=== PATIENT | male | born 1995 | race American Indian/Alaskan Native ===

== ENCOUNTER 2022-03-21 22:30 | Emergency (ER) | payer OTHER ==
[2022-03-21] MEDS ORDERED: HYDROmorphone 1 MG/1 ML INJ ONE ×2 (22:34→22:36)
[2022-03-21] MEDS ORDERED: SODIUM CHLORIDE 0.9% 1000 ML 1,000 ML ONE (22:36)
[2022-03-21] MEDS ORDERED: LIDOCAINE (1%) 10 MG/1 ML VIAL 20 ML MDV INFILTRATI ONE (22:50)
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
[2022-03-21] MEDS ORDERED: SODIUM CHLORIDE 0.9% 1000 ML 1,000 ML IV ONE (23:33)
[2022-03-21] MEDS ORDERED: HYDROmorphone 2 MG/1 ML INJ IV ONE (23:34)
[2022-03-21] MEDS ORDERED: MIDAZOLAM 2 MG/2 ML INJ ONE (23:37)
[2022-03-21] MEDS ORDERED: MIDAZOLAM 5 MG/5 ML INJ MDV IV NR (23:45)
--- NOTE | 2022-03-21 23:53 | XRay Report ---
XR chest 1V ap INDICATION / CLINICAL INFORMATION: post chest tube placement. COMPARISON: Radiograph from earlier same day. FINDINGS: SUPPORT DEVICES: Interval placement of left thoracostomy tube. HEART /PULMONARY VASCULATURE: Questionable area of gas along the left heart border. Heart size is nor mal. LUNGS / PLEURA: No focal airspace consolidation. No sizable pleural effusion. No pneumothorax. IMPRESSION: Left thoracostomy tube. Questionable tiny area of pneumomediastinum versus trace pneumothorax along t he left heart border. Clear lungs. Signer Name: Domenic Wade MD Signed: 03/21/2022 11:48 PM Workstation Name: [id number]
[2022-03-22 00:16] LABS: Hematocrit 45.1 % (35.5-45.6); Hemoglobin 14.4 gm/dl (11.8-15.2); Mean Corpuscular HGB Conc 32 % (32-34); Mean Corpuscular Volume 88 fl (84-94); Platelet Count 175 K/mm3 (140-440); Red Blood Count 5.13 M/mm3 (3.65-5.03); Red Cell Distribution Width 13.8 % (13.2-15.2)
[2022-03-22 00:21] LABS: Alanine Aminotransferase 7 units/L (7-56); Albumin 4.4 g/dL (3.9-5); BUN/Creatinine Ratio 16; Blood Urea Nitrogen 14 mg/dL (9-20); Calcium 8.8 mg/dL (8.4-10.2); Hemolysis Index 15
[2022-03-22] MEDS ORDERED: TETANUS,DIPHTHERIA TOXOID ADULT 0.5 ML INJ IM ONE (00:31)
[2022-03-22 01:21] LABS: Band Neutrophils # (Manual) 0.2 K/mm3; Basophils % (Manual) 0 % (0.0-1.8); Eosinophils % (Manual) 0 % (0.0-4.3); Platelet Estimate Consistent w Auto; Total Cells Counted 100
[2022-03-22 01:36] VITALS: BP 137/71
== END 2022-03-22 01:37 | disposition hospice, inpatient (51) ==
LOC: ED 22:30
DX: S21.132A Puncture wound without foreign body of left front wall of thorax without penetration into thoracic cavity, initial encounter (principal); F17.200 Nicotine dependence, unspecified, uncomplicated; W34.09XA Accidental discharge from other specified firearms, initial encounter; Y93.89 Activity, other specified; Y92.89 Other specified places as the place of occurrence of the external cause; Y99.8 Other external cause status
CPT/HCPCS: 32551; 36415; 71045; 80053; 85007; 85025; 90714; 96361; 96365; 96375; 99285; J0690; J1170; J2250; J7030